=== PATIENT | male | born 1985 | race Caucasian/White ===

== ENCOUNTER 2019-03-25 20:47 | Emergency (ER) | payer MEDICAID ==
[~2019-03-25] VITALS: Ht 180.3 cm; Wt 73.6 kg
[2019-03-25 22:37] VITALS: BP 148/84
== END 2019-03-25 22:37 | disposition home or self-care (01) ==
LOC: ER 20:47
DX: S43.492A Other sprain of left shoulder joint, initial encounter (principal); F10.99 Alcohol use, unspecified with unspecified alcohol-induced disorder; Z56.0 Unemployment, unspecified; W18.39XA Other fall on same level, initial encounter; Y93.89 Activity, other specified; Y92.89 Other specified places as the place of occurrence of the external cause; Y99.8 Other external cause status; Y90.9 Presence of alcohol in blood, level not specified
CPT/HCPCS: 73030; 99284

== ENCOUNTER 2020-07-22 03:00 | Emergency (ER) | payer MEDICAID ==
[~2020-07-22] VITALS: Ht 180.3 cm; Wt 75.0 kg
[2020-07-22 03:05] VITALS: BP 122/91
[2020-07-22] MEDS ORDERED: ketorolac tromethamine 15mg/ml inj. IM ONE (03:35)
== END 2020-07-22 03:49 | disposition home or self-care (01) ==
LOC: ER 03:01
DX: M54.42 Lumbago with sciatica, left side (principal); Z72.89 Other problems related to lifestyle; Z56.0 Unemployment, unspecified
CPT/HCPCS: 96372; 99283; J1885

== ENCOUNTER 2020-09-23 20:51 | Emergency (ER) | payer MEDICAID ==
[~2020-09-23] VITALS: Ht 180.3 cm; Wt 78.9 kg
--- NOTE | 2020-09-23 21:51 | NUR ---
pt to room, assumed care.
[2020-09-23] MEDS ORDERED: DOXYCYCLINE 100MG CAPSULE PO STA (22:34)
[2020-09-23] MEDS ORDERED: DOXY100C43 PO (22:34)
[2020-09-23 22:41] VITALS: BP 121/78
== END 2020-09-23 22:44 | disposition home or self-care (01) ==
LOC: ER 20:52
DX: L02.212 Cutaneous abscess of back [any part, except buttock and flank] (principal); F17.200 Nicotine dependence, unspecified, uncomplicated; F15.90 Other stimulant use, unspecified, uncomplicated; Z72.89 Other problems related to lifestyle; Z56.0 Unemployment, unspecified; Z79.2 Long term (current) use of antibiotics
CPT/HCPCS: 99283

== ENCOUNTER 2020-12-13 23:12 | Emergency (ER) | payer MEDICAID ==
[~2020-12-13] VITALS: Ht 180.3 cm; Wt 75.0 kg
[2020-12-14 00:38] VITALS: BP 132/94
== END 2020-12-14 06:47 | disposition left against medical advice (07) ==
LOC: ER 23:12
DX: M25.511 Pain in right shoulder (principal); Z53.21 Procedure and treatment not carried out due to patient leaving prior to being seen by health care provider
CPT/HCPCS: 73000; 73030

== ENCOUNTER 2020-12-15 01:05 | Emergency (ER) | payer MEDICAID | END 2020-12-15 01:36 | disposition left against medical advice (07) | LOC: ER 01:06 | DX: M25.519 Pain in unspecified shoulder (principal); Z53.21 Procedure and treatment not carried out due to patient leaving prior to being seen by health care provider ==

== ENCOUNTER 2024-01-06 10:38 | Day surgery (SDC) | payer MEDICAID ==
[2023-12-30 15:00] LABS: BASOPHILS % (AUTO) 0.5 % (0-1); EOSINOPHILS # (AUTO) 0.1 X10'3 (0-0.9); HEMATOCRIT 43.1 % (42.0-52.0); HEMOGLOBIN 14.7 g/dl (14.0-17.9); LYMPHOCYTES # (AUTO) 2.6 X10'3 (1.1-4.8); LYMPHOCYTES % (AUTO) 27.9 % (21-51); MEAN CORPUSCULAR HEMOGLOBIN 32.7 PG (27.0-31.0); MEAN CORPUSCULAR HGB CONC 34.1 g/dL (33.0-36.5); MEAN CORPUSCULAR VOLUME 95.7 FL (78-98); MEAN PLATELET VOLUME 8.6 FL (7.4-10.4); MONOCYTES # (AUTO) 0.8 X10'3 (0-0.9); MONOCYTES % (AUTO) 8.9 % (2-12); NEUTROPHILS # (AUTO) 5.7 X10'3 (1.8-7.7); NEUTROPHILS % (AUTO) 61.7 % (42-75); PLATELET COUNT 274 X10'3 (140-440); RED CELL DISTRIBUTION WIDTH 13.5 % (11.5-14.5); WHITE BLOOD COUNT 9.2 X10'3 (4.5-11.0)
[2023-12-30 15:16] LABS: ALANINE AMINOTRANSFERASE 26 U/L (12-78); ALBUMIN/GLOBULIN RATIO 1.3 (1.1-1.5); ALKALINE PHOSPHATASE 78 IU/L (46-116); ANION GAP 8 (8-16); ASPARTATE AMINO TRANSFERASE 23 U/L (10-37); BILIRUBIN,TOTAL 0.4 MG/DL (0.1-1.0); BLOOD UREA NITROGEN 20 MG/DL (7-18); BUN/CREATININE RATIO 18.5 (10.0-20.0); CALCIUM 9.3 MG/DL (8.5-10.1); CHLORIDE 107 MMOL/L (99-107); CREATININE 1.08 MG/DL (0.60-1.10); GLUCOSE 89 MG/DL (70-104); POTASSIUM 3.9 MMOL/L (3.5-5.1); SODIUM 141 MMOL/L (135-145); TOTAL CARBON DIOXIDE 26.2 MMOL/L (24-32); TOTAL PROTEIN 7.2 G/DL (6.4-8.2); eGFR 77 ML/MIN
[2024-01-06] VITALS (7 sets, daily range): BP systolic 118–143; BP diastolic 68–101; PULSE 70–78; RESP 11–17; TEMP 98.3; O2SAT 97–100
[~2024-01-06] VITALS: Ht 180.3 cm; Wt 82.7 kg
[2024-01-06] MEDS: cefazolin 2gm/D5W 100mL 100 ML IV ONE (05:30)
[~2024-01-06 10:38] MED LIST: HYDR-3686 PO
[2024-01-06] MEDS: famotidine 20mg tablet PO ONE (11:22)
[2024-01-06] MEDS: ringers solution, lacted 1,000 ML IV SCH (11:22)
[2024-01-06] MEDS ORDERED: fentaNYL/PF 50MCG/1 ML 2ML syringe ONE (13:29)
[2024-01-06] MEDS ORDERED: midazolam 1 mg/ML 2ml injection ONE (13:29)
[2024-01-06] MEDS ORDERED: morphine 4 MG/ML inj SYRINge IV PRN (13:45)
[2024-01-06] MEDS ORDERED: proCHLORperazine 10 MG/2 ml inj IV PRN (13:45)
[2024-01-06] MEDS ORDERED: ringers solution, lacted 1,000 ML IV SCH (13:45)
[2024-01-06] MEDS ORDERED: enalaprilat dihydrate 2.5mg/2ml vial IV PRN (13:45)
[2024-01-06] MEDS ORDERED: ondansetron/PF 4mg/2ml inj IV PRN (13:45)
[2024-01-06] MEDS ORDERED: morphine 2 MG/ML inj. syringe IV PRN (13:45)
[2024-01-06] MEDS ORDERED: meperidine/PF 25mg/ml syringe IV PRN ×3 (13:45)
[2024-01-06] MEDS ORDERED: labetalol 20mg/4ml (5mg/ml) syringe IV PRN (13:45)
[2024-01-06] MEDS ORDERED: BUPIVAcaine 2.5mg/ml inj 50ml vial (contains preservative) ONE (13:49)
[2024-01-06] MEDS ORDERED: BUPIVACAINE liposomal/PF 13.3 MG/ML vial IM ONE (13:50)
[2024-01-06] MEDS ORDERED: BUPIVAcaine/PF 5 mg/ml 10ml ONE (13:50)
[2024-01-06] MEDS ORDERED: propofol inj 20 ML IV ONE (13:50)
[2024-01-06] MEDS ORDERED: sevoflurane 250ml liquid IH ONE (13:50)
[2024-01-06] MEDS ORDERED: LIDOcaine 1%/PF 5ML 10 MG/ML VIAL ONE ×2 (13:57→14:06)
[2024-01-06] MEDS ORDERED: LIDOcaine 1% (10mg/ml)w/preservative inj. 20ml MDV ONE (14:03)
[2024-01-06] MEDS ORDERED: rocuronium 10mg/ml inj IV ONE (14:05)
[2024-01-06] MEDS ORDERED: BUPIVAcaine/PF 2.5mg/ml (0.25%) 10ml vial ONE (14:08)
[2024-01-06] MEDS: BUPIVAcaine 2.5mg/ml inj 50ml vial (contains preservative) IJ ONE (14:39)
[2024-01-06] MEDS ORDERED: ketorolac trometh 30MG/ML vial 30 MG/ML VIAL ONE (14:40)
[2024-01-06] MEDS ORDERED: acetaminophen 1,000mg/100ml IV 100 ML IV ONE (14:40)
[2024-01-06] MEDS ORDERED: acetaminophen 325mg tablet PO PRN (15:35)
[2024-01-06] MEDS ORDERED: ibuprofen tablet 400 MG TABLET PO SCH (17:30)
== END 2024-01-06 16:20 | disposition home or self-care (01) ==
LOC: PAS 10:38
PROVIDERS: ATTEND Surgery
DX: K43.6 Other and unspecified ventral hernia with obstruction, without gangrene (principal); K42.9 Umbilical hernia without obstruction or gangrene; G89.18 Other acute postprocedural pain; I11.9 Hypertensive heart disease without heart failure; F41.9 Anxiety disorder, unspecified; Z79.899 Other long term (current) drug therapy; Z98.890 Other specified postprocedural states; Z82.49 Family history of ischemic heart disease and other diseases of the circulatory system
CPT/HCPCS: 36415; 49594; 64488; 80053; 82948; 85025; 93005; C1781; C9290; J0131; J0665; J0690; J1100; J1885; J2250; J2405; J2704; J2710; J3010; J3490; J7030; J7120; Z7506; Z7508; Z7512; A4215; A4618